=== PATIENT | female | born 1975 | race African-American/Black ===

== ENCOUNTER 2017-04-27 17:54 | Emergency (ER) | payer BC, SELFPAY ==
[2017-04-27] MEDS ORDERED: Azithromycin 250 MG TAB ONE (19:04)
[2017-04-27] MEDS ORDERED: Benzonatate 100 MG CAP ONE (19:04)
== END 2017-04-27 19:10 | disposition home or self-care (01) ==
LOC: BURERS 17:54
DX: J01.90 Acute sinusitis, unspecified (principal)
CPT/HCPCS: 99283